=== PATIENT | female | born 1990 | race Caucasian/White ===

== ENCOUNTER 2023-11-07 10:15 | Emergency (ER) | payer MEDICAID ==
[~2023-11-07] VITALS: Ht 172.7 cm; Wt 97.5 kg
[2023-11-07] MEDS ORDERED: AVPAK AZITHROM250 M1 PO (10:37)
== END 2023-11-07 11:24 | disposition home or self-care (01) ==
LOC: ED 10:15
DX: J45.909 Unspecified asthma, uncomplicated (principal); F17.290 Nicotine dependence, other tobacco product, uncomplicated

== ENCOUNTER 2024-07-12 17:06 | Emergency (ER) | payer OTHER ==
[~2024-07-12] VITALS: Ht 172.7 cm; Wt 90.7 kg
[~2024-07-12 17:06] MED LIST: AVPAK AZITHROM250 M1 PO
[2024-07-12] MEDS ORDERED: Acetaminophen/Hydrocodone 5 MG/325 MG TABLET PO ONE ×2 (17:40→19:40)
[2024-07-12] MEDS ORDERED: HYDROCODONE-AC1 EAC1 PO (19:38)
== END 2024-07-12 19:50 | disposition home or self-care (01) ==
LOC: ED 17:06
DX: S32.018A Other fracture of first lumbar vertebra, initial encounter for closed fracture (principal); J45.909 Unspecified asthma, uncomplicated; Z79.899 Other long term (current) drug therapy; V44.5XXA Car driver injured in collision with heavy transport vehicle or bus in traffic accident, initial encounter; Y93.89 Activity, other specified; Y92.488 Other paved roadways as the place of occurrence of the external cause; Y99.8 Other external cause status

== ENCOUNTER → 2024-07-16 | Outpatient (CLI) | payer OTHER ==
[~2024-07-16] MED LIST changes: +HYDROCODONE-AC1 EAC1 PO
== END | disposition home or self-care (01) ==
LOC: RAD 17:52
PROVIDERS: ATTEND Nurse Practitioner
DX: M25.562 Pain in left knee (principal)

== ENCOUNTER 2024-11-06 14:19 | Emergency (ER) | payer SELFPAY ==
[~2024-11-06] VITALS: Ht 172.7 cm
[2024-11-06] MEDS ORDERED: PREDNISONE50 MG PO (14:52)
[2024-11-06] MEDS ORDERED: CLOBETASOL PROPIONATE 30 GM TUBE T ONE (14:55)
== END 2024-11-06 15:19 | disposition home or self-care (01) ==
LOC: ED 14:19
DX: S40.862A Insect bite (nonvenomous) of left upper arm, initial encounter (principal); J45.909 Unspecified asthma, uncomplicated; Z88.8 Allergy status to other drugs, medicaments and biological substances; W57.XXXA Bitten or stung by nonvenomous insect and other nonvenomous arthropods, initial encounter; Y93.89 Activity, other specified; Y92.89 Other specified places as the place of occurrence of the external cause; Y99.8 Other external cause status